=== PATIENT | female | born 1945 | race Caucasian/White ===

== ENCOUNTER 2023-11-17 19:10 | Inpatient (IN) | payer MEDICARE, BC ==
[~2023-11-17] VITALS: Ht 157.5 cm; Wt 64.9 kg
[2023-11-17] MEDS ORDERED: REMEDY ESSENTIAL ZINC PASTE 113 GM TOP PRN (19:30)
--- NOTE | 2023-11-17 19:30 | NUR ---
Admitted a 78 year old female from [facility] with admitting diagnosis of S/P Revision of L2-L3 microdiskectomy by Dr Martínez. All needs attended. VSS. Kept comfortable. No acute distress noted. Lower back incision clean dry and intact. Medicated with Tylenol ES 1000mg @2200(scheduled) Patient still complained of pain on the back. Oxycodone 5mg given as needed with relief noted. Purewick to suction. Fall precautions maintained. Siderails up for safety.
[2023-11-17 20:00] VITALS: BP 152/73; TEMP 98; O2SAT 97
[2023-11-17] MEDS ORDERED: HEPA500034 SUBCUT (20:10)
[2023-11-17] MEDS ORDERED: BISA10SU61 RC (20:10)
[2023-11-17] MEDS ORDERED: ACET-2030 PO (20:10)
[2023-11-17] MEDS ORDERED: GABA-532 PO (20:10)
[2023-11-17] MEDS ORDERED: OXYC10TA49 PO (20:10)
[2023-11-17] MEDS ORDERED: SIME80TA15 PO (20:10)
[2023-11-17] MEDS ORDERED: LIDO30AD10 TD (20:10)
[2023-11-17] MEDS ORDERED: OXYC5CAP18 PO (20:10)
[2023-11-17] MEDS ORDERED: ONDA4TAB11 PO (20:10)
[2023-11-17] MEDS ORDERED: PRAV40TA3 PO (20:10)
[2023-11-17] MEDS ORDERED: METH-806 PO (20:10)
[2023-11-17] MEDS ORDERED: SENN-18 PO (20:10)
[2023-11-17] MEDS ORDERED: POLY119P2 PO (20:10)
[2023-11-17] MEDS ORDERED: CYCL7.5T17 PO (20:10)
[2023-11-17] MEDS ORDERED: ACETAMINOPHEN ES 500 MG TABLET- SA PATIENTS-PAIN ONLY PO SCH (21:15)
[2023-11-17] MEDS ORDERED: BISACODYL 10 MG SUPP.RECT RC PRN (21:15)
[2023-11-17] MEDS: ACETAMINOPHEN 500 MG TABLET PO SCH (22:10)
[2023-11-17] MEDS: HEPARIN SODIUM,PORCINE 5,000 UNITS/ML VIAL SQ SCH (22:25)
[2023-11-17] MEDS: OXYCODONE HCL 5 MG TABLET PO PRN (23:50)
[2023-11-18] MEDS: CYCLOBENZAPRINE HCL 10 MG TABLET PO SCH (05:06)
--- NOTE | 2023-11-18 05:19 | NUR ---
Pt rate lower back pain level 7/10 and asked oxyir 5 mg po PRN with Flexeril 0.5 mg PRN. Will monitor in one hr.
[2023-11-18 06:26] LABS: BASOPHILS % (AUTO) 0.6 % (0.0-2.0); EOSINOPHILS # (AUTO) 0.1 K/uL (0.0-0.7); EOSINOPHILS % (AUTO) 2.1 % (0.0-7.0); HEMATOCRIT 33.2 % (31.2-41.9); HEMOGLOBIN 11.7 g/dL (10.9-14.3); LYMPHOCYTES # (AUTO) 1.5 K/uL (0.8-4.8); LYMPHOCYTES % (AUTO) 23.1 % (20.5-51.5); MEAN CORPUSCULAR HEMOGLOBIN 31.7 uug (24.7-32.8); MEAN CORPUSCULAR HGB CONC 35 g/dL (32.3-35.6); MEAN CORPUSCULAR VOLUME 90.3 fL (75.5-95.3); MONOCYTES # (AUTO) 0.6 K/uL (0.1-1.30); MONOCYTES % (AUTO) 9.4 % (0.0-11.0); NEUTROPHILS # (AUTO) 4.2 K/uL (1.8-8.9); NEUTROPHILS % (AUTO) 64.8 % (38.5-71.5); PLATELET COUNT (AUTO) 284 K/uL (179-408); RED BLOOD CELL COUNT(AUTO) 3.68 MIL/uL (3.63-4.92); RED CELL DISTRIBUTION WIDTH 14.2 % (12.3-17.7); WHITE BLOOD COUNT (AUTO) 6.5 K/uL (3.8-11.8)
[2023-11-18 06:31] LABS: DIFFERENTIAL COMMENT 1
[2023-11-18 06:44] LABS: CALCIUM 8.3 mg/dL (8.5-10.1); CARBON DIOXIDE 27 mmol/L (21-32); CHLORIDE 97 mmol/L (98-107); CREATININE 0.8 mg/dL (0.6-1.3); GLUCOSE 165 mg/dL (74-106); MAGNESIUM 1.7 mg/dL (1.8-2.4); PHOSPHOROUS 3.3 mg/dL (2.5-4.9); POTASSIUM 3.3 mmol/L (3.5-5.1); SODIUM SERUM 131 mmol/L (136-145); UREA NITROGEN, BLOOD 7 mg/dL (7-18)
[2023-11-18 06:48] VITALS: BP 140/73; TEMP 98.3; O2SAT 96
[2023-11-18] MEDS: LIDOCAINE 5% PATCH TD SCH (08:06)
[2023-11-18] MEDS: SENNOSIDES 1 TABLET PO SCH (08:06)
[2023-11-18] MEDS: GABAPENTIN 100 MG CAPSULE PO SCH (08:07)
[2023-11-18] MEDS: MIRALAX 17 GM POWD.PACK PO SCH (08:56)
[2023-11-18] MEDS: POTASSIUM CHLORIDE 20 MEQ TAB.PRT.SR PO ONE (08:56)
[2023-11-18] MEDS ORDERED: POLYETHYLENE GLYCOL 3350 238 GM POWDER PO SCH (09:00)
[2023-11-18] MEDS ORDERED: DOCU100T2 PO (10:08)
[2023-11-18] MEDS: OXYCODONE HCL 5 MG TABLET PO PRN (10:55)
[2023-11-18 12:00] VITALS: BP 140/69; TEMP 98.4; O2SAT 97
[2023-11-18] MEDS: MAGNESIUM OXIDE 400 MG TABLET PO ONE (12:41)
[2023-11-18 12:42] LABS: *SODIUM RNDM,URINE 57 mmol/L (40-220)
[2023-11-18 16:00] VITALS: BP 131/67; TEMP 96.8; O2SAT 97
[2023-11-18 20:00] VITALS: BP 177/76; TEMP 97.9; O2SAT 99
[2023-11-18] MEDS: ATORVASTATIN 10 MG TABLET PO SCH (21:17)
--- NOTE | 2023-11-18 22:00 | NUR ---
received patient in bed awake, AO x 4, RA, O2 sat 99, skin intact, provide pm care, reported pain 8 out of 10, medicated Oxycodone 10, requested warm milk with her meds, pt appeared to be asleep during the reassessment, all needs are met, initiated all precautions, will continue to monitor patient.
[2023-11-19] MEDS ORDERED: CYCLOBENZAPRINE HCL 10 MG TABLET PO PRN (06:30)
[2023-11-19 07:54] LABS: CALCIUM 9.2 mg/dL (8.5-10.1); CARBON DIOXIDE 28 mmol/L (21-32); CHLORIDE 108 mmol/L (98-107); CREATININE 0.9 mg/dL (0.6-1.3); GLUCOSE 82 mg/dL (74-106); MAGNESIUM 2.1 mg/dL (1.8-2.4); POTASSIUM 3.8 mmol/L (3.5-5.1); SODIUM SERUM 141 mmol/L (136-145); UREA NITROGEN, BLOOD 23 mg/dL (7-18); URIC ACID 4.6 mg/dL (2.6-6.0)
[2023-11-19 07:58] LABS: THYROID STIMULATING HORMONE 2.254 mIU/mL (0.358-3.740)
[2023-11-19] MEDS: GABAPENTIN 300 MG CAPSULE PO SCH (08:28)
[2023-11-19] MEDS: MIRALAX 17 GM POWD.PACK PO SCH (08:29)
[2023-11-19] MEDS: LIDOCAINE 5% PATCH TD SCH (10:00)
[2023-11-19 16:00] VITALS: BP 126/76; TEMP 98; O2SAT 97
[2023-11-19] MEDS: DEXAMETHASONE SOD PHOSPHATE 10 MG INJ IM SCH (16:08)
[2023-11-19 20:25] VITALS: BP 166/74; TEMP 98.2; O2SAT 95
--- NOTE | 2023-11-20 03:30 | NUR ---
received patient in bed, semi ho, awake, AOx4, appeared to be forgetful, asking "what happened last night?", this write oriented patient regarding safety concern and answered questions, compliance to all meds, reported pain 9 out of 10, medicated Oxycodone PRN, appeared to be awake, forgetful stated " when are you going to give me pain medication?" This signwriter reoriented patient to bed. all needs were met, call light within reach, will continue to monitor patient.
[2023-11-20 05:40] VITALS: BP 168/93; TEMP 98.3; O2SAT 97
[2023-11-20] MEDS: CLONIDINE HCL 0.1 MG TABLET PO PRN (06:46)
[2023-11-20 12:05] VITALS: BP 105/63; TEMP 98; O2SAT 96
[2023-11-20] MEDS: METHOCARBAMOL 500 MG TABLET PO PRN (14:56)
[2023-11-20 15:57] VITALS: BP 131/67; TEMP 98.6; O2SAT 96
[2023-11-20 20:00] VITALS: BP 152/74; TEMP 99.2; O2SAT 95
--- NOTE | 2023-11-20 20:30 | NUR ---
Received patient in bed awake. A&Ox4. On RA, no s/s of distress or discomfort. Compliance to all med. All needs were met. Call light within reach. Will continue to monitor.
--- NOTE | 2023-11-21 00:25 | NUR ---
Reported pain as 8 out of 10, administered Robaxin as ordered. Patient was asleep during reassessment. Will continue to monitor.
[2023-11-21 06:18] VITALS: BP 153/72; TEMP 98.2; O2SAT 95
--- NOTE | 2023-11-21 06:44 | NUR ---
The patient slept well through the night. No signs of discomfort. Fall and safety precautions in place.
--- NOTE | 2023-11-21 08:00 | NUR ---
Received patient in bed, awake, alert x4, and verbally responsive. No SOB noted, r/r regular and non-labored, Sat O2 96% RA, lower back-s/p surgical incision noted, no bleeding and no s/s of infection. Repositioning performed, kept clean and dry. Call light in reach.
--- NOTE | 2023-11-21 14:11 | NUR ---
INTERDISCIPLINARY TEAM CONFERENCE
[2023-11-21 16:33] VITALS: BP 171/80; TEMP 98.1; O2SAT 98
[2023-11-21 20:00] VITALS: BP 154/59; TEMP 97.5; O2SAT 97
[2023-11-21] MEDS: METOPROLOL TARTRATE 25 MG TABLET PO SCH (21:02)
--- NOTE | 2023-11-22 03:41 | NUR ---
AAOx3-4 VSS No acute distress noted. Lower back dressing intact. Fall precautions maintained. OOB to the BR with walker, Voiding well. BM noted this shift. Denies any pain nor any discomfort. Tylenol ES given as scheduled. CT of lumbar spine done. Kept comfortable.
[2023-11-22 06:00] VITALS: BP 141/71; TEMP 98.6; O2SAT 95
[2023-11-22 06:50] LABS: EOSINOPHILS # (AUTO) 0.1 K/uL (0.0-0.7); EOSINOPHILS % (AUTO) 0.9 % (0.0-7.0); HEMOGLOBIN 11.5 g/dL (10.9-14.3); LYMPHOCYTES # (AUTO) 2.9 K/uL (0.8-4.8); LYMPHOCYTES % (AUTO) 28.6 % (20.5-51.5); MEAN CORPUSCULAR HEMOGLOBIN 30.6 uug (24.7-32.8); MEAN CORPUSCULAR HGB CONC 34 g/dL (32.3-35.6); MEAN CORPUSCULAR VOLUME 90.4 fL (75.5-95.3); MONOCYTES # (AUTO) 1.1 K/uL (0.1-1.30); NEUTROPHILS # (AUTO) 6.1 K/uL (1.8-8.9); NEUTROPHILS % (AUTO) 59.5 % (38.5-71.5); PLATELET COUNT (AUTO) 353 K/uL (179-408); RED BLOOD CELL COUNT(AUTO) 3.76 MIL/uL (3.63-4.92); WHITE BLOOD COUNT (AUTO) 10.2 K/uL (3.8-11.8)
[2023-11-22 07:12] LABS: IRON, SERUM 94 ug/dL (50-175)
[2023-11-22 07:46] LABS: ALANINE AMINOTRANSFERASE 51 U/L (14-59); ALBUMIN 2.9 g/dL (3.4-5.0); ALKALINE PHOSPHATASE 140 U/L (50-136); ASPARTATE AMINOTRANSFERASE 26 U/L (15-37); BILIRUBIN,TOTAL 0.6 mg/dL (0.2-1.0); CALCIUM 8.4 mg/dL (8.5-10.1); CARBON DIOXIDE 28 mmol/L (21-32); CHLORIDE 96 mmol/L (98-107); CHOLESTEROL 200 mg/dL (<200); CREATININE 0.7 mg/dL (0.6-1.3); GLUCOSE 107 mg/dL (74-106); HDL CHOLESTEROL 89 mg/dL (40-60); PHOSPHOROUS 3.6 mg/dL (2.5-4.9); POTASSIUM 3.6 mmol/L (3.5-5.1); SODIUM SERUM 130 mmol/L (136-145); TOTAL PROTEIN, SERUM 6.3 g/dL (6.4-8.2); TRIGLYCERIDES 107 MG/DL (30-150); UREA NITROGEN, BLOOD 10 mg/dL (7-18)
--- NOTE | 2023-11-22 08:05 | NUR ---
Received patient in bed, awake, alert x4, and verbally responsive. No SOB noted, r/r regular and non-labored, Sat O2 96% RA, lower back-s/p surgical incision noted, no bleeding and no s/s of infection. Repositioning performed with pillow support, kept clean and dry. Call light in reach.
[2023-11-22 10:52] LABS: THYROID STIMULATING HORMONE 2.146 mIU/mL (0.358-3.740)
[2023-11-22 16:30] VITALS: BP 156/80; TEMP 97.9; O2SAT 97
--- NOTE | 2023-11-22 19:40 | NUR ---
Received pt in bed, no sign of distress or SOB, AA&Ox3, complaints of pain from lower back. No IV access, currently on RA. Surgical incision clean, dry, and intact. All further needs being met. Safety and fall precautions in place. Call light within reach.
[2023-11-22 20:00] VITALS: BP 163/74; TEMP 98.2; O2SAT 97
--- NOTE | 2023-11-22 21:07 | NUR ---
Pt given pain medication for complaints of pain. Tolerated well.
[2023-11-22] MEDS: METOPROLOL TARTRATE 25 MG TABLET PO SCH (21:08)
[2023-11-23 04:00] VITALS: BP 159/90; TEMP 98.3; O2SAT 94
--- NOTE | 2023-11-23 05:43 | NUR ---
Pt complaining of low back pain. PRN pain medication administered with good effect. Tolerated well.
--- NOTE | 2023-11-23 07:10 | NUR ---
Patient in bed, awake, alert, and verbally responsive. Not in respiratory distress, afebrile, denies nausea/vomiting. S/p surgical incision no s/s of infection, luis carlos intact. All needs attended. Call light in reach
[2023-11-23 15:08] LABS: BASOPHILS % (AUTO) 0.2 % (0.0-2.0); EOSINOPHILS # (AUTO) 0.2 K/uL (0.0-0.7); EOSINOPHILS % (AUTO) 1.8 % (0.0-7.0); HEMATOCRIT 37.5 % (31.2-41.9); HEMOGLOBIN 12.5 g/dL (10.9-14.3); LYMPHOCYTES # (AUTO) 2.3 K/uL (0.8-4.8); LYMPHOCYTES % (AUTO) 25.2 % (20.5-51.5); MEAN CORPUSCULAR HEMOGLOBIN 30.5 uug (24.7-32.8); MEAN CORPUSCULAR HGB CONC 33 g/dL (32.3-35.6); MEAN CORPUSCULAR VOLUME 91.4 fL (75.5-95.3); MONOCYTES # (AUTO) 0.9 K/uL (0.1-1.30); MONOCYTES % (AUTO) 10.2 % (0.0-11.0); NEUTROPHILS # (AUTO) 5.6 K/uL (1.8-8.9); NEUTROPHILS % (AUTO) 62.6 % (38.5-71.5); PLATELET COUNT (AUTO) 393 K/uL (179-408); RED BLOOD CELL COUNT(AUTO) 4.11 MIL/uL (3.63-4.92); RED CELL DISTRIBUTION WIDTH 14.2 % (12.3-17.7); WHITE BLOOD COUNT (AUTO) 8.9 K/uL (3.8-11.8)
[2023-11-23 15:09] LABS: DIFFERENTIAL COMMENT 1
[2023-11-23 16:00] VITALS: BP 112/70; TEMP 98.4; O2SAT 96
--- NOTE | 2023-11-23 19:40 | NUR ---
Received pt in bed, no sign of distress or SOB, AA&Ox3, complaints of low back pain. No other acute changes from last night. All needs attended, safety and fall precaution in place, call light in reach.
[2023-11-23 20:00] VITALS: BP 132/64; TEMP 98.2; O2SAT 95
[2023-11-23 23:41] LABS: *BILIRUBIN,URIN NEGATIVE (NEGATIVE); *BLOOD, URINE NEGATIVE (NEGATIVE); *CLARITY,URINE CLEAR (CLEAR); *COLOR,URINE YELLOW (YELLOW); *KETONES,URINE NEGATIVE (NEGATIVE); *PROTEIN,URINE NEGATIVE (NEGATIVE); *UROBILINOGEN,URINE 0.2 E.U./dl (NORMAL); LEUKOCYTE ESTERASE ,URINE 1+ (NEGATIVE); NITRITE, URINE NEGATIVE (NEGATIVE); UGLUCOSE NEGATIVE (NEGATIVE)
[2023-11-24 01:23] LABS: BACTERIA,URINE FEW /HPF (NONE SEEN); RBC,URINE NONE SEEN /HPF (0-3); SQUAMOUS EPITHELIAL CELL,UR MODERATE /HPF (NONE SEEN)
--- NOTE | 2023-11-24 03:26 | NUR ---
Pt complaining of sharp low back pain. PRN pain medication given, pt tolerated well.
[2023-11-24 06:00] VITALS: BP 148/78; TEMP 98; O2SAT 98
[2023-11-24] MEDS: SIMETHICONE 80 MG TAB.CHEW PO PRN (10:41)
[2023-11-24 16:00] VITALS: BP 128/71; TEMP 98.2; O2SAT 97
[2023-11-24 20:00] VITALS: BP 153/67; TEMP 97.9; O2SAT 97
[2023-11-24] MEDS: CEphaleXIN 500 MG CAPSULE PO SCH (21:09)
--- NOTE | 2023-11-25 03:00 | NUR ---
1944 Received pt resting comfortably in bed. AO3. VSS. No chest pain, SOB, or s/s of distress. Skin intact. Safety precautions in place. Bed in lowest position with side rails up. Bed alarm on. Call light within reach. All needs attended to. 2124 C/o 7/10 back pain. Oxycodone prn 5mg given with good effect. No SOB or s/s distress noted.
--- NOTE | 2023-11-25 05:07 | NUR ---
C/o 10/ lower back pain. Oxycodone 10mg given with good effect. No SOB or s/s of resp distress noted.
[2023-11-25 06:00] VITALS: BP 146/71; TEMP 98.2; O2SAT 97
--- NOTE | 2023-11-25 11:55 | NUR ---
INDIVIDUALIZED PLAN OF CARE THIS WAS OBSERVED AND DONE ON 11/20/23 13:00
[2023-11-25 16:42] VITALS: BP 138/67; TEMP 97.7; O2SAT 96
--- NOTE | 2023-11-25 19:30 | NUR ---
received patient in bed awaked, appeared anxious, restless AO x 4, RA No S/SX of SOB, distress. reported pain 8 out of 10 which medicated Oxycodone 10, pain reported 2, ambulated independently to bathroom w walker, compliance to all meds, Skin intact. all needs were met, precaution initiated, will continue to monitor.
[2023-11-25 20:18] VITALS: BP 150/69; TEMP 98.1; O2SAT 96
[2023-11-26 04:00] VITALS: BP 146/58; TEMP 96.5; O2SAT 97
[2023-11-26 16:12] VITALS: BP 138/63; TEMP 97.7; O2SAT 99
[2023-11-26 20:06] VITALS: BP 155/71; TEMP 98; O2SAT 99
[2023-11-27 06:00] VITALS: BP 132/55; TEMP 98.1; O2SAT 95
[2023-11-27 07:12] LABS: CALCIUM 8.7 mg/dL (8.5-10.1); CARBON DIOXIDE 26 mmol/L (21-32); CHLORIDE 98 mmol/L (98-107); CREATININE 0.7 mg/dL (0.6-1.3); GLUCOSE 109 mg/dL (74-106); MAGNESIUM 2.1 mg/dL (1.8-2.4); PHOSPHOROUS 3.6 mg/dL (2.5-4.9); POTASSIUM 3.8 mmol/L (3.5-5.1); SODIUM SERUM 132 mmol/L (136-145); UREA NITROGEN, BLOOD 6 mg/dL (7-18); URIC ACID 3.5 mg/dL (2.6-6.0)
[2023-11-27 15:46] VITALS: BP 135/61; TEMP 97.5; O2SAT 99
--- NOTE | 2023-11-27 19:40 | NUR ---
Received pt in bed, no sign of distress or SOB, AA&Ox3, c/o of pain in low back, requesting medication later before bedtime. No IV access, currently on RA. All needs met, safety precaution in place. Call light within reach.
[2023-11-27 19:49] VITALS: TEMP 98.1
--- NOTE | 2023-11-27 22:00 | NUR ---
Pt requesting pain medication, PRN pain medication administered with good effect, pt tolerated well.
[2023-11-28 05:51] VITALS: BP 142/60; TEMP 98.1; O2SAT 97
[2023-11-28 08:10] VITALS: BP 142/60
--- NOTE | 2023-11-28 15:04 | NUR ---
dc order received noted and carried out,dc instruction and education given to the pt and her ,pt said she will follow up with her surgeon,pt left the facility via private car in stable condition
== END 2023-11-28 15:00 | disposition home health service (06) | DRG 560 ==
PROVIDERS: ADMIT Physical Medicine & Rehabilitation Pain Medicine; ATTEND Physical Medicine & Rehabilitation Pain Medicine
DX: Z47.89 Encounter for other orthopedic aftercare (principal); D68.59 Other primary thrombophilia; E87.1 Hypo-osmolality and hyponatremia; M51.36 Other intervertebral disc degeneration, lumbar region; M41.9 Scoliosis, unspecified; M48.061 Spinal stenosis, lumbar region without neurogenic claudication; M54.16 Radiculopathy, lumbar region; D64.9 Anemia, unspecified; E78.5 Hyperlipidemia, unspecified; G62.9 Polyneuropathy, unspecified; I10 Essential (primary) hypertension; G89.29 Other chronic pain; E83.42 Hypomagnesemia; E87.6 Hypokalemia; E66.9 Obesity, unspecified; Z68.26 Body mass index [BMI] 26.0-26.9, adult
CPT/HCPCS: 36415; 72131; 83550; 83735; 84100; 84300; 84443; 84550; 85025; 85610; A4663; A9150; J1100; J1644